=== PATIENT | female | born 1980 | race Caucasian/White ===

== ENCOUNTER 2018-11-02 13:32 | Observation (INO) | payer OTHER ==
[~2018-11-02] VITALS: Ht 167.6 cm; Wt 105.7 kg
--- NOTE | 2018-11-02 14:19 | NUR ---
Patient transferred to bed 4 via wheelchair. RN evaluating patient at bedside.
--- NOTE | 2018-11-02 14:20 | NUR ---
Dr. Connors evaluating patient at bedside.
--- NOTE | 2018-11-02 14:28 | NUR ---
Note jane in EDM - 11/02/18 at 1451 by MEDAP HR 210 ADENOSINE 6MG IVP GIVEN AT THIS TIME. DR. BOSS, LUIS F RN, LANEY RN, HELADIO RN AT BEDSIDE, PT AWAKE AND ALERT. WILL CONTINUE TO MONITOR CLOSELY.
--- NOTE | 2018-11-02 14:31 | NUR ---
6 MG ADENOSINE IVP GIVEN PER DR. RAYMUNDO ORDERS. PT HR DECREASED TO 180s AND THEN INCREASED AGAIN TO LOW 200s (200-210 BMP). ANOTHER 6 MG IVP GIVEN PER DR. RAYMUNDO ORDERS. AGAIN, PT HR DECREASED TO 180s AND THEN INCREASED AGAIN TO LOW 200s (200-210 BMP).
[2018-11-02] MEDS ORDERED: NACL 0.9% 1,000 ML IV ONE (14:35)
[2018-11-02] MEDS ORDERED: DILTIAZEM 25 MG/5 ML VIAL IVP ONE ×2 (14:35→14:46)
[2018-11-02] MEDS ORDERED: ADENOSINE 6 MG/2 ML VIAL IVP ONE ×3 (14:35→14:36)
--- NOTE | 2018-11-02 14:37 | NUR ---
DILTIAZEM ADMINISTERED BY LANEY PEÑA AT THIS TIME. DR. BOSS, LUIS F RN, HELADIO RN AT BEDSIDE. BP 108/76 HR 186. PT [id number], CONVERSING TO STAFF.
--- NOTE | 2018-11-02 14:43 | NUR ---
DR BOSS ORDER NS 1L BOLUS AT THIS TIME INFUSIN. HR 112.
[2018-11-02 15:41] LABS: BASOPHILS % (AUTO) 0.5 % (0.0-2.0); EOSINOPHILS # (AUTO) 0.1 K/uL (0-0.4); EOSINOPHILS % (AUTO) 1.5 % (0.0-4.0); HEMATOCRIT 36.1 % (36-48); HEMOGLOBIN 11.9 g/dL (12.0-16.0); LYMPHOCYTES # (AUTO) 1.7 K/uL (2.5-16.5); LYMPHOCYTES % (AUTO) 24.3 % (20.5-51.1); MEAN CORPUSCULAR HEMOGLOBIN 30 pg (27-31); MEAN CORPUSCULAR HGB CONC 33 g/dL (33-37); MEAN CORPUSCULAR VOLUME 91.6 fL (80-94); MONOCYTES # (AUTO) 0.5 K/uL (0.8-1.0); MONOCYTES % (AUTO) 7.6 % (1.7-9.3); NEUTROPHILS # (AUTO) 4.7 K/uL (1.8-7.7); NEUTROPHILS % (AUTO) 66.1 % (42.2-75.2); PLATELET COUNT (AUTO) 229 K/uL (140-450); RED BLOOD CELL COUNT(AUTO) 3.94 MIL/uL (4.20-5.40); RED CELL DISTRIBUTION WIDTH 13.5 % (11.6-13.7); WHITE BLOOD COUNT (AUTO) 7.2 K/uL (4.8-10.8)
[2018-11-02 16:04] LABS: PROTHROMBIN TIME 9.8 secs (10.8-13.4)
[2018-11-02 16:07] LABS: ALBUMIN 2.6 g/dL (3.4-5.0); CREATININE 0.8 mg/dL (0.6-1.3); TOTAL BILIRUBIN 0.3 mg/dL (0.0-1.0)
[2018-11-02 16:25] LABS: ANION GAP 13.9 (8-16); CARBON DIOXIDE 21.3 mmol/L (21-32); POTASSIUM 3.2 mmol/L (3.5-5.1)
--- NOTE | 2018-11-02 16:41 | NUR ---
PATIENT STATES SHE FEELS "FINE". RESTING IN BED.
[2018-11-02] MEDS ORDERED: ASPIRIN 81 MG TAB.CHEW PO ONE (16:50)
--- NOTE | 2018-11-02 16:58 | NUR ---
DR FONSECA AT BEDSIDE
[2018-11-02] MEDS ORDERED: MORPHINE SULFATE 2 MG/ML SYR IV PRN (17:10)
[2018-11-02] MEDS ORDERED: NITROGLYCERIN 0.4 MG TAB SL PRN (17:10)
[2018-11-02] MEDS ORDERED: ACETAMINOPHEN 325 MG TAB PO PRN (17:10)
[2018-11-02] MEDS ORDERED: KETOROLAC 30 MG/ML VIAL IV PRN (17:10)
--- NOTE | 2018-11-02 17:11 | NUR ---
PATIENT WAS PROVIDED URINE CUP FOR UDS AND REMINDED TO DO SO. PATIENT WENT TO THE BATHROOM AND FORGOT TO GET URINE SAMPLE.
--- NOTE | 2018-11-02 17:15 | NUR ---
Dr. Biswas evaluating patient at bedside.
--- NOTE | 2018-11-02 17:35 | NUR ---
Patient will be admitted to care of DR. RACHEL. Admited to TELE OBS. Will go to room 107B. Belongings list completed. Report to JORGE PEÑA.
--- NOTE | 2018-11-02 17:35 | NUR ---
PT ARRIVED ON UNIT PT APPEARS STABLE AND IN NO APPARENT DISTRESS. RECEIVED HAND OFF REPORT FROM ER NURSE LANEY. IV SITE IS PATENT ALL SAFETY MEASURES ARE IN PLACE. MRSA TAKEN VITAL SIGNS TAKEN
--- NOTE | 2018-11-02 19:05 | NUR ---
RECEIVED BEDSIDE REPORT FROM DAY SHIFT NURSE. PATIENT IS AWAKE, ALERT, AND COOPERATIVE. RESPIRATION EVEN UNLABORED ON ROOM AIR. NO DISTRESS NOTED. SKIN IS WARM AND DRY. IV PATENT AND INTACT. DENIES PAIN. PLAN OF CARE WAS DISCUSSED. PARTNER AT BEDSIDE. ORIENT PATIENT TO ROOM, STAFF, AND CALL LIGHT. ALL SAFETY MEASURES IN PLACE. FALL RISK PRECAUTION IN PLACE. BED IS AT LOW POSITION. CALL LIGHT WITHIN REACH AND VERBALIZES ITS USE. WILL CONTINUE TO MONITOR.
--- NOTE | 2018-11-02 19:26 | NUR ---
ENDORSED PT TO PM NURSE ALL SAFETY MEASURES ARE IN PLACE. PT APPEARS STABLE AND IN NO APPARENT DISTRESS.
[2018-11-02 19:27] VITALS: BP 109/65
--- NOTE | 2018-11-02 20:00 | NUR ---
INITIAL ASSESSMENT DONE. VITALS WERE TAKEN. PATIENT IN STABLE CONDITION WILL CONTINUE TO MONITOR.
--- NOTE | 2018-11-02 20:35 | NUR ---
PATIENT COMPLAINED OF RIGHT HAND PAIN 5/10 DUE TO THE IV INSERTION. PRN TYLENOL ADMINISTER PER ORDER. WILL CONTINUE TO MONITOR.
[2018-11-02] MEDS ORDERED: POTASSIUM CHLORIDE 10 MEQ TABER PO SCH (23:30)
--- NOTE | 2018-11-02 23:55 | NUR ---
ADMINISTERED 40MEQ K DUR PO PER DR. SCHUSTER ORDER DUE TO POTASSIUM 3.2. WILL CONTINUE TO MONITOR.
[2018-11-03] VITALS: BP 102/51
--- NOTE | 2018-11-03 | NUR ---
VITALS WERE TAKEN. PATIENT IN STABLE CONDITION. NO DISTRESS NOTED. WILL CONTINUE TO MONITOR.
--- NOTE | 2018-11-03 00:35 | NUR ---
SPOKE TO DR. Madan TOWNSEND REGARDING PATIENT TROPONIN LEVEL 0.094 NO NEW ORDERS RECEIVED. WILL CONTINUE TO MONITOR.
--- NOTE | 2018-11-03 02:00 | NUR ---
CHECKED PATIENT. PATIENT SLEEPING RESPIRATION EVEN UNLABORED ON ROOM AIR. NO DISTRESS NOTED. WILL CONTINUE TO MONITOR
[2018-11-03 04:00] VITALS: BP 104/54
--- NOTE | 2018-11-03 04:00 | NUR ---
VITALS WERE TAKEN. PATIENT IN STABLE CONDITION. SLIGHTLY TACHYCARDIC. NO DISTRESS NOTED. WILL CONTINUE TO MONITOR
--- NOTE | 2018-11-03 05:20 | NUR ---
URINE COLLECTED AND SENT TO THE LAB
[2018-11-03 06:10] LABS: BARBITURATE, URINE NEG. ng/ml (NEG <=200); BENZODIAZEPINE, URINE NEG. ng/mL (NEG <=200); CANNABINOID, URINE NEG. ng/mL (NEG <=50); COCAINE, URINE NEG. ng/mL (NEG <=300); OPIATE, URINE NEG. ng/mL (NEG <=2000); PHENCYCLIDINE SCREEN,URINE NEG. ng/mL (NEG <=25)
--- NOTE | 2018-11-03 07:00 | NUR ---
DURING CHANGED REPORT PATIENT VERBALIZED THAT SHE FEELS SHE HAS WHEEZING WHEN SHE BREATHES. ASSESS AND AUSCULTATED, CONFIRM MINIMAL WHEEZING PRESENT. ENDORSED TO DAY SHIFT NURSE.
--- NOTE | 2018-11-03 07:16 | NUR ---
ENDORSED PATIENT TO DAY SHIFT NURSE. PATIENT IN STABLE CONDITION.
--- NOTE | 2018-11-03 07:22 | NUR ---
RECEIVED HAND OFF REPORT FROM MANAGER GALLERY NURSE PT IS AWAKE IN BED PT COMPLAINS OF SHORTNESS OF BREATH AND NOTABLE MILD WHEEZES PT REQUEST BREATHING TREATMENT. PAGED DR. RACHEL ALL SAFETY MEASURES ARE IN PLACE WILL CONTINUE TO MONITOR.
--- NOTE | 2018-11-03 07:37 | NUR ---
SPOKE WITH DR. RACHEL ON PHONE RECEIVED ORDERS. READ BACK ORDERS AND PLACED ORDERS.
[2018-11-03 08:00] VITALS: BP 120/66
[2018-11-03] MEDS ORDERED: ALBUTEROL SULFATE/IPRATROPIU 3 ML SOL IH PRN (08:00)
[2018-11-03 08:25] LABS: BASOPHILS % (AUTO) 0.4 % (0.0-2.0); EOSINOPHILS # (AUTO) 0.2 K/uL (0-0.4); EOSINOPHILS % (AUTO) 1.6 % (0.0-4.0); HEMATOCRIT 37.7 % (36-48); HEMOGLOBIN 12.4 g/dL (12.0-16.0); LYMPHOCYTES # (AUTO) 1.7 K/uL (2.5-16.5); MEAN CORPUSCULAR HEMOGLOBIN 30 pg (27-31); MEAN CORPUSCULAR HGB CONC 33 g/dL (33-37); MONOCYTES # (AUTO) 0.7 K/uL (0.8-1.0); MONOCYTES % (AUTO) 6.4 % (1.7-9.3); NEUTROPHILS # (AUTO) 8.7 K/uL (1.8-7.7); NEUTROPHILS % (AUTO) 76.6 % (42.2-75.2); PLATELET COUNT (AUTO) 228 K/uL (140-450); RED BLOOD CELL COUNT(AUTO) 4.15 MIL/uL (4.20-5.40); RED CELL DISTRIBUTION WIDTH 13.3 % (11.6-13.7); WHITE BLOOD COUNT (AUTO) 11.3 K/uL (4.8-10.8)
[2018-11-03 08:37] LABS: ANION GAP 13.5 (8-16); CARBON DIOXIDE 22.5 mmol/L (21-32); CREATININE 0.6 mg/dL (0.6-1.3)
--- NOTE | 2018-11-03 08:48 | NUR ---
PATIENT HAS BEEN SCREENED AND CATEGORIZED MODERATE NUTRITION RISK. PATIENT WILL BE SEEN WITHIN 3-5 DAYS OF ADMISSION. 11/05/18[address]
[2018-11-03] MEDS ORDERED: ASPIRIN 81 MG TAB.CHEW PO SCH (09:00)
--- NOTE | 2018-11-03 09:15 | NUR ---
FREQUENT ROUNDING ON PT PT APPEARS STABLE AND IN NO APPARENT DISTRESS. ALL SAFETY MEASURES ARE IN PLACE WILL CONTINUE TO MONITOR.
--- NOTE | 2018-11-03 11:35 | NUR ---
FREQUENT ROUNDING ON PT PT APPEARS STABLE AND IN NO APPARENT DISTRESS. ALL SAFETY MEASURES ARE IN PLACE AND WILL CONTINUE TO MONITOR.
[2018-11-03 12:16] VITALS: BP 120/66
--- NOTE | 2018-11-03 12:44 | NUR ---
REMOVED IV IVTIP INTACT. REMOVED ID BAND. PATIENT SIGNED ALL DISCHARGE PAPER WORK INFORMED PT TO FOLLOW UP WITH PRIMARY CARE PROVIDER IN 7 DAYS AND A [facility] TECHNICIAN IN 2 WEEKS. PROVIDED THE PATIENT WITH DRUG REHABILITATION INFORMATION. PT AMBULATED OFF THE UNIT WITH ALL PERSONAL BELONGINGS ASSISTED BY SPOUSE. PT APPEARED STABLE AND IN NO APPARENT DISTRESS.
--- NOTE | 2018-11-03 15:45 | NUR ---
CALLED DR ZUÑIGA OFFICE SPOKE TO JEFFY [phone], APPOINTMENT MADE ON 11/05/18 AT 11AM, [id number], [place] [id number]. APPOINTMENT INFO GIVEN TO PATIENT , VERBALIZED UNDERSTANDING.
== END 2018-11-03 12:40 | disposition home or self-care (01) ==
LOC: MED 13:32 → MTU 17:01 → INTOOBSV 17:01 → OBSVTOIN 17:01
PROVIDERS: ADMIT Internal Medicine; ATTEND Internal Medicine
DX: I47.1 Supraventricular tachycardia (principal); I21.A1 Myocardial infarction type 2; E44.1 Mild protein-calorie malnutrition; E87.6 Hypokalemia; R07.89 Other chest pain; R42 Dizziness and giddiness; R94.31 Abnormal electrocardiogram [ECG] [EKG]; E46 Unspecified protein-calorie malnutrition; R74.8 Abnormal levels of other serum enzymes; Z72.0 Tobacco use; F15.90 Other stimulant use, unspecified, uncomplicated
CPT/HCPCS: 36415; 71045; 80048; 80053; 80305; 82550; 84484; 85025; 85610; 85730; 87081; 93005; 94760; 96361; 96374; 96375; 99291; G0378; J0153; J3490; Q0092